=== PATIENT | male | born 1990 | race Hispanic/Latino ===

== ENCOUNTER → 2019-01-04 | Outpatient (CLI) | payer BC, OTHER ==
--- NOTE | 2019-01-04 19:29 | Diagnostic Imaging Report ---
EXAMINATION: Scrotal ultrasound CLINICAL INDICATION: Right groin and right testicular pain for one month. COMPARISON: None. TECHNIQUE: Grayscale and color Doppler evaluation of the scrotum was performed in transverse and longitudinal planes. FINDINGS: The right testicle measures 4.7 x 2.3 x 3.0 cm. Normal echogenicity. Normal vascularity. There are no masses or calcifications.. The right epididymis measures 1.3 x 1.1 x 1.3 cm. Normal echogenicity. Normal vascularity. 0.6 x 0.7 x 0.5 cm cystic, anechoic lesion in the right epididymal head. . Trace right hydrocele. No varicocele is identified. There is normal arterial and venous flow to the right testicle, without evidence of torsion. The left testicle measures 5.1 x 2.6 x 3.7 cm. Normal echogenicity. Normal vascularity. There are no masses or calcifications.. The left epididymis measures 1.1 x 0.8 x 0.9 cm. Normal echogenicity. Normal vascularity.. There is no evidence of left hydrocele or varicocele. There is normal arterial and venous flow to the left testicle without evidence of torsion. The scrotum has a normal appearance, without focal lesions. No evidence of inguinal hernia. IMPRESSION: 1. Normal bilateral testicular size and echogenicity. No focal lesions. Normal arterial and venous flow, with low likelihood of torsion. 2. Trace right hydrocele. 3. 0.7 cm right epididymal head simple cyst versus spermatocele. Signed by: Dr. Jaime Martinez M.D. on 01/04/2019 7:26 PM
== END ==
LOC: US 16:11
PROVIDERS: ATTEND Urology
DX: R10.2 Pelvic and perineal pain (principal)
CPT/HCPCS: 76870; 93976

== ENCOUNTER 2019-03-28 16:57 | Emergency (ER) | payer BC, OTHER ==
[~2019-03-28] VITALS: Ht 170.2 cm; Wt 113.4 kg
--- OUTSIDE RECORDS SUMMARY | 2019-03-28 16:59 | XMS REPORT ---
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 Allergies, Adverse Reactions, Alerts This patient has no known allergies or adverse reactions. Medications This patient has no known medications. Results Test Description Test Time Test Comments Text Results Atomic Results Result Comments US TESTICULAR 2019-01-04 19:22:00 [place] [address] Patient Name: JOSE BERG MR #: [id number] : 1990 Age/Sex: 28/M Req #: [id number] [facility] Physician: Ordered by: SHAHANA LANG MD Report #: [id number] Location: Room/Bed: Procedure: [id number] US/US TESTICULAR Exam Date: 01/04/19 Exam Time: 1744 REPORT STATUS: Signed EXAMINATION: Scrotal ultrasound CLINICAL INDICATION: Right groin and right testicular pain for one month. COMPARISON: None. TECHNIQUE: Grayscale and color Doppler evaluation of the scrotum was performed in transverse and longitudinal planes. FINDINGS: The right testicle measures 4.7 x 2.3 x 3.0 cm. Normal echogenicity. Normal vascularity. There are no masses or calcifications.. The right epididymis measures 1.3 x 1.1 x 1.3 cm. Normal echogenicity. Normal vascularity. 0.6 x 0.7 x 0.5 cm cystic, anechoic lesion in the right epididymal head. . Trace right hydrocele. No varicocele is identified. There is normal arterial and venous flow to the right testicle, without evidence of torsion. The left testicle measures 5.1 x 2.6 x 3.7 cm. Normal echogenicity. Normal vascularity. There are no masses or calcifications.. The left epididymis measures 1.1 x 0.8 x 0.9 cm. Normal echogenicity. Normal vascularity.. There is no evidence of left hydrocele or varicocele. There is normal arterial and venous flow to the left testicle without evidence of torsion. The scrotum has a normal appearance, without focal lesions. No evidence of inguinal hernia. IMPRESSION: 1. Normal bilateral testicular size and echogenicity. No focal lesions. Normal arterial and venous flow, with low likelihood of torsion. 2. Trace right hydrocele. 3. 0.7 cm right epididymal head simple cyst versus spermatocele. Signed by: Dr. Destinee Sloan M.D. on 01/04/2019 7:26 PM Dictated By: DESTINEE SLOAN MD 06 Transcribed By: ANA on 01/13/191106 COPY TO: SHAHANA LANG MD TESTICULAR DOPPLER [facility] 2019-01-04 19:22:00 [place] [address] Patient Name: JOSE BERG MR #: [id number] : 1990 Age/Sex: 28/M Req #: [id number] [facility] Physician: Ordered by: SHAHANA LANG MD Report #: [id number] Location: Room/Bed: Procedure: [id number] US/US TESTICULAR DOPPLER LTD Exam Date: 01/04/19 Exam Time: 1744 REPORT STATUS: Signed EXAMINATION: Scrotal ultrasound CLINICAL INDICATION: Right groin and right testicular pain for one month. COMPARISON: None. TECHNIQUE: Grayscale and color Doppler evaluation of the scrotum was performed in transverse and longitudinal planes. FINDINGS: The right testicle measures 4.7 x 2.3 x 3.0 cm. Normal echogenicity. Normal vascularity. There are no masses or calcifications.. The right epididymis measures 1.3 x 1.1 x 1.3 cm. Normal echogenicity. Normal vascularity. 0.6 x 0.7 x 0.5 cm cystic, anechoic lesion in the right epididymal head. . Trace right hydrocele. No varicocele is identified. There is normal arterial and venous flow to the right testicle, without evidence of torsion. The left testicle measures 5.1 x 2.6 x 3.7 cm. Normal echogenicity. Normal vascularity. There are no masses or calcifications.. The left epididymis measures 1.1 x 0.8 x 0.9 cm. Normal echogenicity. Normal vascularity.. There is no evidence of left hydrocele or varicocele. There is normal arterial and venous flow to the left testicle without evidence of torsion. The scrotum has a normal appearance, without focal lesions. No evidence of inguinal hernia.
[2019-03-28 17:34] LABS: BASOPHILS # (AUTO) 0.1 (0.0-0.1); BASOPHILS % 0.7 % (0.0-1.0); EOSINOPHILS # (AUTO) 0.1 (0.0-0.4); EOSINOPHILS % 1.2 % (0.0-6.0); HEMOGLOBIN 14.4 g/dL (14.0-18.0); LYMPHOCYTES # (AUTO) 1.9 (1.0-3.2); LYMPHOCYTES % 22.2 % (18.0-39.1); MEAN CORPUSCULAR HEMOGLOBIN 32.9 pg (28-32); MEAN CORPUSCULAR HGB CONC 34.3 g/dL (31-35); MEAN CORPUSCULAR VOLUME 95.9 fL (81-99); MONOCYTES # (AUTO) 0.7 (0.2-0.8); MONOCYTES % 7.9 % (4.4-11.3); NEUTROPHILS # (AUTO) 5.7 (2.1-6.9); NEUTROPHILS % 67.8 % (38.7-80.0); PLATELET COUNT 240 x10e3/uL (140-360); RED BLOOD COUNT 4.38 x10e6/uL (4.3-5.7); RED CELL DISTRIBUTION WIDTH 12.3 % (11.7-14.4)
[2019-03-28 17:45] LABS: BILIRUBIN,URINE NEGATIVE (NEGATIVE); CLARITY,URINE CLEAR (CLEAR); COLOR,URINE YELLOW (YELLOW); KETONES,URINE NEGATIVE (NEGATIVE); LEUKOCYTE ESTERASE ,URINE NEGATIVE (NEGATIVE); NITRITE,URINE NEGATIVE (NEGATIVE); PROTEIN,URINE DIPSTICK NEGATIVE (NEGATIVE); URINE UROBILINOGEN 0.2 mg/dL (0.2 - 1)
[2019-03-28 17:46] LABS: INR 0.95; PROTHROMBIN TIME 13.2 seconds (11.9-14.5)
[2019-03-28 17:47] LABS: PARTIAL THROMBOPLASTIN TIME 27.6 seconds (23.8-35.5)
[2019-03-28 17:53] LABS: AMPHETAMINES SCREEN,URINE NEGATIVE (NEGATIVE); BENZODIAZEPINES SCREEN,URINE NEGATIVE (NEGATIVE); PHENCYCLIDINE SCREEN,URINE NEGATIVE (NEGATIVE)
--- NOTE | 2019-03-28 17:55 | NUR ---
CALLED AND SPOKE TO TIA REGARDING NEED FOR VENOUS DOPPLER TECH
[2019-03-28 17:56] LABS: ALANINE AMINOTRANSFERASE 34 IU/L (0-55); ALBUMIN/GLOBULIN RATIO 1.3 (0.8-2.0); ALKALINE PHOSPHATASE 47 IU/L (40-150); BLOOD UREA NITROGEN 13 mg/dL (7-26); BUN/CREATININE RATIO 13 (6-25); CALCIUM 8.7 mg/dL (8.4-10.2); CARBON DIOXIDE 25 mmol/L (22-29); CHLORIDE 104 mmol/L (98-107); CREATINE KINASE 217 IU/L (30-200); CREATININE, SERUM 1.01 mg/dL (0.72-1.25); EST GLOMERULAR FILTRATION RATE > 60 ML/MIN (60-); GLUCOSE 103 mg/dL (74-118); SODIUM 136 mmol/L (136-145)
--- NOTE | 2019-03-28 18:06 | Diagnostic Imaging Report ---
Frontal and lateral views of the chest. HISTORY: Left leg pain, blood clot, shortness of breath COMPARISON: None available. DISCUSSION: Lungs: Low lung volumes result in bibasilar vascular crowding, accentuation of the pulmonary interstitial markings, central pulmonary vasculature, and the cardiac silhouette. Allowing for these limitations, the findings are as follows: No evidence of a consolidative pneumonia or pulmonary alveolar edema. Pleura: No pleural effusion or pneumothorax. Heart and mediastinum: The cardiomediastinal silhouette appear(s) unremarkable. Bones and soft tissues: Appear unremarkable. IMPRESSION: No acute radiographic abnormality. Signed by: Dr. Jose Alfredo Obrien D.O., M.M.M. on 03/28/2019 6:03 PM
[2019-03-28 18:07] LABS: BACTERIA,URINE FEW /HPF; EPITHELIAL CELLS,URINE FEW /LPF; RBC,URINE 0-5 /HPF (0-5)
[2019-03-28 18:37] LABS: CREATINE KINASE MB < 1.00 ng/mL (0-4.3)
[2019-03-28] MEDS ORDERED: IOPAMIDOL 370 MG/ML 200 ML INFUS..BTL INJ ONE (20:15)
[2019-03-28] MEDS ORDERED: SODIUM CHLORIDE 0.9% 50ML 50 ML ONE (20:15)
--- NOTE | 2019-03-28 20:49 | Diagnostic Imaging Report ---
CT CHEST WITH CONTRAST HISTORY: Leg pain, blood clot, PE protocol, chest pain, shortness of breath COMPARISON: None available. TECHNIQUE: CT scan of the chest WITH intravenous contrast, using PE protocol. The chest was scanned utilizing a multidetector helical scanner from the lung apex through the level of the adrenal glands. Thin section reconstructions were obtained with special concentration on the pulmonary arteries. IV CONTRAST: 100 cc of Isovue-370. PROTOCOL: PE RADIATION DOSE: Total DLP: 629.51 mGy*cm Dose modulation, iterative reconstruction, and/or weight based adjustment of the mA/kV was utilized to reduce the radiation dose to as low as reasonably achievable. COMPLICATIONS: None DISCUSSION: Evaluation is limited by suboptimal opacification the pulmonary arteries and beam Wilkinson artifact within the left subclavian vein and superior vena cava. Lungs: The lungs are well inflated and clear. Mild thickening of the bronchial mckeon. Vessels: No filling defects are identified within the pulmonary arteries to the segmental levels. Airways: The major airways are clear. Pleura: No pleural effusion or pneumothorax. Heart and mediastinum: Unremarkable Abdomen: Limited evaluation of the upper abdomen. Lymph nodes: No pathologically enlarged lymph node. Bones: No acute bone abnormality. Soft tissues: Unremarkable IMPRESSION: 1. No evidence of a pulmonary embolus, as above. 2. No pneumonia or pulmonary edema. 3. Findings which could be seen in the setting of a nonspecific bronchitis. Signed by: Dr. Jose Alfredo Obrien D.O., M.M.M. on 03/28/2019 8:46 PM
[2019-03-28 21:10] VITALS: BP 116/82
== END 2019-03-28 21:13 | disposition home or self-care (01) ==
LOC: ER 16:57
DX: R07.89 Other chest pain (principal); R06.02 Shortness of breath; R05 Cough; J20.9 Acute bronchitis, unspecified; M79.605 Pain in left leg; I10 Essential (primary) hypertension; F41.9 Anxiety disorder, unspecified; Z86.718 Personal history of other venous thrombosis and embolism
CPT/HCPCS: 36415; 71046; 71260; 80053; 80307; 81001; 82550; 82553; 84484; 85025; 85379; 85610; 85730; 93005; 93970; 99284; Q9967

== ENCOUNTER 2019-12-25 21:08 | Emergency (ER) | payer BC ==
[~2019-12-25] VITALS: Ht 170.2 cm; Wt 113.4 kg
--- NOTE | 2019-12-25 21:32 | Emergency Department Note ---
History of Present Illnes History of Present Illness Chief Complaint: Genitourinary History of Present Illness This is a 29 year old male arrives to the ED with complaints of iesha turia, patient was recently seen at outpatient urgent care that noted a parapelvic cyst. Patient was told to go to the emergency department for a kidney ultrasound. 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 Any updates have been documented here. Past Medical History Recent Fever: No Clinical Suspicion of Infectio: No New/Unexplained Change in Ment: No Past Medical History: Hypertension, Anxiety, DVT/PE Other Medical History: PE/DVT 2014; RT DVT 2015 Other Surgery: ORAL SX Social History Smoking Cessation: Never Smoker Counseling Performed: No Other Last Tetanus: OOD Review of Systems Review of Systems Constitutional: Reports no symptoms EENTM: Reports no symptoms Cardiovascular: Reports no symptoms Respiratory: Reports no symptoms Gastrointestinal: Reports no symptoms Genitourinary: Reports as per HPI, Reports dysuria, Reports hematuria Musculoskeletal: Reports no symptoms Integumentary: Reports no symptoms Neurological: Reports no symptoms Psychological: Reports no symptoms Endocrine: Reports no symptoms Hematological/Lymphatic: Reports no symptoms Physical Exam Related Data Allergies: Coded Allergies: No Known Allergies (Unverified , 03/28/19) Triage Vital Signs Vital Signs Date Time Temp Pulse Resp B/P (MAP) Pulse Ox O2 Delivery O2 Flow Rate FiO2 12/25/19 21:21 99.3 80 16 157/89 100 Room Air Vital signs reviewed: Yes Physical Exam CONSTITUTIONAL Constitutional: Present well-developed, Present well-nourished, Present obese HENT HENT: Present normocephalic, Present atraumatic, Present oropharynx clear/moist, Present nose normal HENT L/R: Present left ext ear normal, Present right ext ear normal EYES Eyes: Reports PERRL, Reports conjunctivae normal NECK Neck: Present ROM normal PULMONARY Pulmonary: Present effort normal, Present breath sounds normal CARDIOVASCULAR Cardiovascular: Present regular rhythm, Present heart sounds normal, Present capillary refill normal, Present normal rate GASTROINTESTINAL Abdominal: Present soft, Present nontender, Present bowel sounds normal GENITOURINARY Genitourinary: Present exam deferred SKIN Skin: Present warm, Present dry MUSCULOSKELETAL Musculoskeletal: Present ROM normal NEUROLOGICAL Neurological: Present alert, Present oriented x 3, Present no gross motor or sensory deficits PSYCHOLOGICAL Psychological: Present mood/affect normal, Present judgement normal Results Laboratory Lab results reviewed: Yes Imaging Imaging results reviewed: Yes Assessment & Plan Medical Decision Making MDM 29-year-old male arrives the ED with complaints of hematuria, pelvic cyst noted, unclear etiology. Spoke to Dr. Davila from urology and made an appointment for the patient tomorrow at 10 AM. Labwork otherwise unremarkable, patient stable for discharge home Assessment & Plan Final Impression: (1) Hematuria Depart Disposition: HOME, SELF-CARE Last Vital Signs Date Time Temp Pulse Resp B/P (MAP) Pulse Ox O2 Delivery O2 Flow Rate FiO2 12/25/19 21:21 99.3 80 16 157/89 100 Room Air JONN AGUIAR DO Dec 25, 2019 21:32
[2019-12-25 21:37] LABS: BASOPHILS # (AUTO) 0.1 (0.0-0.1); BASOPHILS % 0.6 % (0.0-1.0); EOSINOPHILS # (AUTO) 0.1 (0.0-0.4); HEMATOCRIT 47.1 % (38.2-49.6); HEMOGLOBIN 15.7 g/dL (14.0-18.0); LYMPHOCYTES # (AUTO) 2.4 (1.0-3.2); LYMPHOCYTES % 24.9 % (18.0-39.1); MEAN CORPUSCULAR HEMOGLOBIN 32.2 pg (28-32); MEAN CORPUSCULAR HGB CONC 33.3 g/dL (31-35); MEAN CORPUSCULAR VOLUME 96.5 fL (81-99); MONOCYTES # (AUTO) 0.7 (0.2-0.8); MONOCYTES % 7.4 % (4.4-11.3); NEUTROPHILS # (AUTO) 6.3 (2.1-6.9); NEUTROPHILS % 65.8 % (38.7-80.0); PLATELET COUNT 246 x10e3/uL (140-360); RED BLOOD COUNT 4.88 x10e6/uL (4.3-5.7); RED CELL DISTRIBUTION WIDTH 12.1 % (11.7-14.4)
[2019-12-25 21:55] LABS: CLARITY,URINE SL CLOUDY (CLEAR); COLOR,URINE YELLOW (YELLOW)
[2019-12-25] MEDS ORDERED: IOPAMIDOL 370 MG/ML 200 ML INFUS..BTL INJ ONE (21:55)
[2019-12-25] MEDS ORDERED: SODIUM CHLORIDE 0.9% 50ML 50 ML ONE (21:55)
[2019-12-25 21:56] LABS: ALANINE AMINOTRANSFERASE 16 IU/L (0-55); ALBUMIN 4.2 g/dL (3.5-5.0); ALBUMIN/GLOBULIN RATIO 1.1 (0.8-2.0); ALKALINE PHOSPHATASE 52 IU/L (40-150); ANION GAP 13.9 mmol/L (8-16); BLOOD UREA NITROGEN 14 mg/dL (7-26); BUN/CREATININE RATIO 12 (6-25); CALCIUM 9.4 mg/dL (8.4-10.2); CARBON DIOXIDE 25 mmol/L (22-29); CHLORIDE 106 mmol/L (98-107); CREATININE, SERUM 1.21 mg/dL (0.72-1.25); EST GLOMERULAR FILTRATION RATE > 60 ML/MIN (60-); GLUCOSE 100 mg/dL (74-118); POTASSIUM 3.9 mmol/L (3.5-5.1); SODIUM 141 mmol/L (136-145)
[2019-12-25 21:56] LABS: BILIRUBIN,URINE NEGATIVE (NEGATIVE); KETONES,URINE NEGATIVE (NEGATIVE); LEUKOCYTE ESTERASE ,URINE NEGATIVE (NEGATIVE); NITRITE,URINE NEGATIVE (NEGATIVE); PROTEIN,URINE DIPSTICK NEGATIVE (NEGATIVE); RBC,URINE >50 /HPF (0-5); URINE UROBILINOGEN 1 mg/dL (0.2 - 1)
[2019-12-25 21:57] LABS: BACTERIA,URINE RARE /HPF; EPITHELIAL CELLS,URINE RARE /LPF
--- NOTE | 2019-12-25 23:26 | Diagnostic Imaging Report ---
EXAM: CT Abdomen and Pelvis WITH contrast INDICATION: Hematuria. Pain. COMPARISON: None. TECHNIQUE: Abdomen and pelvis were scanned utilizing a multidetector helical scanner from the lung base to the pubic symphysis after administration of IV contrast. Coronal and sagittal reformations were obtained. Routine protocol was performed. Scan was performed when during portal venous phase. IV CONTRAST: 100 cc Isovue-370. ORAL CONTRAST: Water RADIATION DOSE: Total DLP: 845.55 mGy*cm Estimated effective dose: (DLP x 0.015 x size factor) mSv COMPLICATIONS: None FINDINGS: LINES and TUBES: None. LOWER THORAX: Unremarkable HEPATOBILIARY: No focal hepatic lesions. No biliary ductal dilation. GALLBLADDER: No radio-opaque stones or sludge. No wall thickening. SPLEEN: No splenomegaly. PANCREAS: No focal masses or ductal dilatation. Infiltration particularly of the pancreatic head. ADRENALS: No adrenal nodules KIDNEYS/URETERS: Kidneys enhance symmetrically. No hydronephrosis. Low-attenuation lesion in the upper pole of the right kidney may represent related dilated calyces versus a parapelvic cyst. 5 mm low-attenuation lesion in the interpolar region of the right kidney on image 58 series 301 is indeterminate. 4 mm low-attenuation lesion in the upper pole of the left kidney on image 57 series 301 is too small to be characterize, possibly a small cyst. Similar lesions present in the upper pole of the left kidney on coronal image 53. No stones. GI TRACT: No abnormal distention, wall thickening, or evidence of bowel obstruction. Appendix is normal. PELVIC ORGANS/BLADDER: Unremarkable. LYMPH NODES: No lymphadenopathy. VESSELS: Unremarkable. PERITONEUM / RETROPERITONEUM: No free air or fluid. BONES: Multilevel small thoracolumbar Schmorl nodes. SOFT TISSUES: Unremarkable. IMPRESSION: 1. 2.8 cm low-attenuation lesion in the upper pole of the right kidney not completely evaluated in this single phase exam; differential diagnosis includes a corpus parapelvic cyst versus likely closely dilated collecting system with underlying urothelial lesion not excluded. Recommend further evaluation with nonemergent dedicated CT hematuria protocol (CT urogram). Signed by: Dr. Prisca Humphries M.D. on 12/25/2019 11:22 PM
[2019-12-25 23:35] VITALS: BP 128/71
== END 2019-12-25 23:42 | disposition home or self-care (01) ==
LOC: ER 21:30
DX: R31.9 Hematuria, unspecified (principal); I10 Essential (primary) hypertension; F41.9 Anxiety disorder, unspecified; Z86.718 Personal history of other venous thrombosis and embolism
CPT/HCPCS: 36415; 74177; 80053; 81001; 85025; 87086; 99284; Q9967